=== PATIENT | female | born 1960 | race Caucasian/White ===

== ENCOUNTER 2018-11-05 16:26 | Inpatient (IN) ==
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
[2018-11-05 17:51] LABS: Hematocrit 35.2 % (35.3-44.9); Hemoglobin 11.3 g/dL (11.5-15.4); Mean Corpuscular HGB Conc 32.1 g/dL (31.6-35.5); Mean Corpuscular Hemoglobin 25.5 pg (28.0-33.3); Mean Corpuscular Volume 79.5 fL (83.0-100.0); Nucleated Red Blood Cells 0.1 /100 WBC (0); Red Blood Count 4.43 M/mcL (3.82-4.97)
[2018-11-05 17:58] LABS: INR 1.2
[2018-11-05 18:01] LABS: Activated Partial Thrombo Time 29.5 Seconds (26.0-36.0)
[2018-11-05 18:10] LABS: BUN/Creatinine Ratio 18 (6-26); Blood Urea Nitrogen 12 mg/dL (6-20); Calcium 9.3 mg/dL (8.6-10.3); Carbon Dioxide 28 mEq/L (23-29); Chloride 106 mEq/L (98-107); Glucose 101 mg/dL (70-105); Osmolality,Calculated 294 (280-300); Potassium 3.9 mEq/L (3.5-5.1); Sodium 142 mEq/L (136-145); eGFR For Non-African Americans > 60 (> 60)
[2018-11-05 18:12] LABS: Platelet Count 8 K/mcL (140-400)
[2018-11-05 18:15] LABS: Lymphocytes # 93.3 K/mcL (0.6-4.6); Neutrophils # 1.9 K/mcL (1.6-8.9); Platelet Estimate Marked Decrease (Normal); Reactive Lymphocytes Present (Not Present); Smudge Cells Present (Not Present)
[2018-11-05] MEDS ORDERED: Dexamethasone 4 MG/ML VIAL IVP SCH (18:39)
[2018-11-05] MEDS ORDERED: Dexamethasone 4 MG/ML VIAL IVP ONE (19:30)
[2018-11-05] MEDS ORDERED: Naloxone 0.4 MG/ML INJ IVP PRN (19:52)
[2018-11-05] MEDS ORDERED: 0.9 % Sodium Chloride 250 ML ONE (22:09)
--- NOTE | 2018-11-05 22:57 | Internal Med History&Physical ---
Date of Encounter: 11/05/18 Time of Encounter: 22:46 Internal Medicine - H&P: HPI Chief complaint: Bruising History of present illness: Ms. Jackson is a pleasant 58 year old female with a past medical history of iron deficiency anemia who presented to the ED due to increased bruising. Patient states that she has noticed bruising on various parts of her body over the past 3 days. She initially noticed petechia in her mouth several days ago after eating some chips. She awoke this morning and noticed a bruise on the side of her head adjacent to her right eye, as well as on her left forearm. Today she noticed petechiae involving her stomach and lower extremities. There is also a bruise on her abdomen which she states occurred after her dog jumped on her lap. She reports otherwise feeling her usual self. Denies any fevers, night sweats, fatigue or weight loss. She did state that she took ibuprofen for the past 2 days because of some neck pain as well as upper respiratory tract symptoms. Patient does not smoke or drink alcohol. Her only family history she endorses diabetes and heart disease, hypertension. She reports anemia in the past for which she was taking iron supplements for. His had a hysterectomy in the past. In the ED patient was found to be afebrile, hemodynamically stable. Laboratory workup was notable for a platelet count of 8 and a white blood cell count of 96.[address] Cary with oncology was consult and is okay with admitting the patient here and they will consult and see the patient tomorrow. He did recommend that I give 40 mg IV Decadron to be given daily for 4 days to help with the ITP. He suspects this most likely is CLL with ITP Past Med Surg Social Fam HX - Past Medical History Medical history: migraine, other Additional medical history: Anemia Psychiatric history: no psych history - Past Surgical History Surgical History: hysterectomy, orthopedic, other Additional surgical history: hand - Social History Smoking Status: Never smoker Smokeless Tobacco Status: No Alcohol use: none Drug use: none - Family History Mother Hx Family Endocrine Disorder: Yes (DM) Internal Medicine - H&P: Meds Orphenadrine [Norflex] 100 mg PO BID #10 tablet.er 08/27/18 [Rx] Allergy/AdvReac Type Severity Reaction Status Date / Time azithromycin Allergy Vomiting Verified 11/05/18 16:29 codeine Allergy Rash Verified 11/05/18 16:29 Penicillins [PCN] Allergy Rash Verified 11/05/18 16:29 dicyclomine [From Bentyl] AdvReac Anaphylaxis Verified 11/05/18 16:29 Erythromycin Base AdvReac Nausea Verified 11/05/18 16:29 All Systems PM: A 10-system review of systems was performed and is negative for pertinent findings except as documented above in the HPI. - Constitutional Constitutional: no chills, no fever(s), no night sweats - EENT Eyes: no change in vision, no discharge, no pain, no photophobia Ears: no ear discharge, no ear pain, no tinnitus Nose, mouth and throat: no dysphagia, no nasal discharge, no neck pain, no sore throat - Cardiovascular Cardiovascular ROS IM: no chest pain, no diaphoresis, no dyspnea, no lightheadedness, no palpitations, no syncope - Respiratory Respiratory: no cough, no dyspnea, no wheezing, no excessive phlegm production - Gastrointestinal Gastrointestinal: no abdominal pain, no diarrhea, no hematemesis, no hematochezia, no melena, no nausea, no vomiting - Genitourinary Genitourinary: no change in urinary stream, no dysuria, no flank pain, no hematuria - Musculoskeletal Musculoskeletal ROS IM: no numbness, no tingling - Integumentary Integumentary IM: no rash, no unusual bruising - Neurological Neurological ROS: no confusion, no convulsions, no focal weakness, no numbness, no tingling, no tremor(s) - Hematologic/Lymphatic Hematologic/Lymphatic: no easy bruising - Constitutional Vitals: Temp Pulse Resp BP Pulse Ox 97.8 F 77 16 140/85 96 11/05/18 22:18 11/05/18 22:18 11/05/18 22:18 11/05/18 22:18 11/05/18 22:18 Exam: General: Alert and oriented 3 lying in bed in no acute distress Skin: 2 x 2 centimeter area of ecchymosis adjacent to the right eye. 2 x 2 centimeter bruise on the left lower quadrant of the abdomen. Numerous petechiae seen diffusely across the abdomen. Petechiae seen on the lower extremities bilaterally HEENT:EOM, pupils equal, round and reactive. Right anterior cervical lymphadenopathy noted Cardiovascular:Normal S1 & S2, no rubs, murmurs or gallops. No JVD. Pulse regular. Lungs:Normal breath sounds, no wheezes or crackles. Abdomen:Soft, non-tender, no rigidity. No hepatosplenomegaly noted however patient's body habitus makes it difficult to assess Extremities:No deformity, no axillary lymphadenopathy appreciated; 2 x 2 cm area of ecchymosis on the mid forearm; no edema or tenderness, no joint swelling or clubbing. Neurological:Normal cognition and motor skills. Pulses:Carotid and radial pulses normal +2. Rest of the physical exam is non contributory Internal Med - H&P Results - Labs CBC & Chem 7: 11/06/18 05:06 11/06/18 05:06 Labs: Short CBC 11/05/18 Range/Units 17:41 WBC 96.2 H* (4.3-11.1) K/mcL Hgb 11.3 L (11.5-15.4) g/dL Hct 35.2 L (35.3-44.9) % Plt Count 8 L* (140-400) K/mcL Neutrophils # 1.9 (1.6-8.9) K/mcL BMP 11/05/18 17:41 Sodium 142 Potassium 3.9 Chloride 106 Carbon Dioxide 28 BUN 12 Creatinine 0.66 Glucose 101 Calcium 9.3 - Assessment and plan (1) Lymphocytosis Current Visit: Yes Status: Acute Assessment and plan: Patient found to have a leukocytosis of 96.2 associated with 97% lymphocytes. Only records of a previous CBC was in 02/05/2015 at which time her white blood c ell count was 10.7. Concern for CLL based on discussion with oncology. Patient is otherwise asymptomatic aside from development of ecchymosis over the past 3 days. Questionable cervical lymphadenopathy appreciated. -We will obtain peripheral smear -Oncology to follow in the morning. (2) Thrombocytopenia Current Visit: Yes Status: Acute Assessment and plan: Severe symptomatic thrombocytopenia with a platelet count of 8. Patient has ecchymotic lesions on the forehead, forearms and abdomen as well as petechia involving the oral mucosa, abdomen and lower extremities. This in the setting of a lymphocytic predominant leukocytosis concerning for CLL. After discussion with oncology, concern for ITP. Patient given IV dexamethasone in the ED. We will start patient on 1 unit of platelets. Oncology to follow in the morning. We will monitor for signs of bleeding. (3) Anemia Current Visit: Yes Status: Acute Assessment and plan: Patient has a reported history of iron deficiency anemia in the remote past. Hemoglobin and hematocrit found to be 11.3 and 35.2 respectively. MCV of 79.5. Previously documented hemoglobin of 13.2 in 2015. Patient's thrombocytopenia and evidence of ecchymosis/petechia may be contributing to current levels. Currently asymptomatic. -We will monitor H&H Qualifiers: Anemia type: unspecified type Qualified Code(s): D64.9 - Anemia, unspecified (4) DVT prophylaxis Current Visit: Yes Status: Acute Assessment and plan: Pneumatic compression devices - Time Spent With Patient Total time spent is greater than 50% in coordination of care (as documented) at patient's floor/unit and/or counseling patient:
[2018-11-05] MEDS ORDERED: Acetaminophen 325 MG TABLET PO PRN (23:16)
[2018-11-06] MEDS: 0.9 % Sodium Chloride 1,000 ML IVC SCH ×2 (01:13→14:15)
[2018-11-06 05:40] LABS: Mean Corpuscular HGB Conc 31.6 g/dL (31.6-35.5); Nucleated Red Blood Cells 0.3 /100 WBC (0); Red Cell Distribution Width 16.1 % (11.5-14.5)
[2018-11-06 05:42] LABS: Hematocrit 36.7 % (35.3-44.9); Hemoglobin 11.6 g/dL (11.5-15.4); INR 1.1; Mean Corpuscular Hemoglobin 25.2 pg (28.0-33.3); Mean Corpuscular Volume 79.6 fL (83.0-100.0); Prothrombin Time 12.6 Seconds (9.4-12.1); Red Blood Count 4.61 M/mcL (3.82-4.97)
[2018-11-06 05:45] LABS: Activated Partial Thrombo Time 28.2 Seconds (26.0-36.0)
[2018-11-06 05:56] LABS: Platelet Count 5 K/mcL (140-400)
[2018-11-06 06:02] LABS: % Iron Saturation 52 % (15-50); Alanine Aminotransferase 28 Units/L (7-52); Albumin/Globulin Ratio 1.6 (1.1-2.2); Alkaline Phosphatase 83 Units/L (34-104); Aspartate Amino Transferase 25 Units/L (13-39); BUN/Creatinine Ratio 21 (6-26); Bilirubin,Total 0.6 mg/dL (0.3-1.0); Blood Urea Nitrogen 13 mg/dL (6-20); Calcium 9.1 mg/dL (8.6-10.3); Carbon Dioxide 24 mEq/L (23-29); Chloride 105 mEq/L (98-107); Globulin 2.5 g/dL (2.4-3.5); Glucose 157 mg/dL (70-105); Iron 181 mcg/dL (50-170); Lactate Dehydrogenase 430 Units/L (140-271); Magnesium 2.2 mg/dL (1.6-2.6); Osmolality,Calculated 293 (280-300); Phosphorous 2.7 mg/dL (2.7-4.5); Sodium 140 mEq/L (136-145); Total Protein 6.5 g/dL (6.4-8.9); Transferrin 250 mg/dL (203-362); eGFR For Non-African Americans > 60 (> 60)
[2018-11-06 06:25] LABS: Lymphocytes # 28.4 K/mcL (0.6-4.6); Monocytes # 1.3 K/mcL (0.0-1.3); Neutrophils # 1.9 K/mcL (1.6-8.9)
[2018-11-06 06:26] LABS: Platelet Estimate Marked Decrease (Normal); Reactive Lymphocytes Present (Not Present); Smudge Cells Present (Not Present)
[2018-11-06] MEDS ORDERED: 0.9 % Sodium Chloride 250 ML ONE (10:11)
--- NOTE | 2018-11-06 13:27 | Oncology Inp Consult Note ---
<Marii Vargas L - Last Filed: 11/07/18 09:25> Date of Encounter: 11/06/18 Time of Encounter: 11:15 Assessment and Plan (1) Thrombocytopenia Status: Acute Assessment and plan: Acute thrombocytopenia with platelet count of 8k on admission Scattered bruising and petechiae, no s/s active bleeding Only labs to compare back to are from January 2015, at that time CBC was unremarkable Concerning for ITP given potential lymphoproliferative disorder with lymphocytosis Plan: Start decadron 40 mg IVP daily for minimum of 4 days May consider IVIG if platelets are refractory to steroids- 1gram/kg daily x2 doses (2) Lymphocytosis Status: Acute Assessment and plan: Initially concerning for CLL/SLL on presentation Interestingly, she presented with WBC count of 96 and lymphocyte count of 93 yesterday Today, counts have markedly decreased to WBC 31 and lymphocyte 28 Etiology of improvement unclear, secondary to steroids? or lymphocytosis secondary to other process? Hgb 11.3 on admission, 11.6 today Microcytosis and nucleated RBC's noted Blood smear reveals absolute lymphocytosis. Microcytes, ovalocytes, schistocytes seen. The smear shows atypical lymphocytes. Features are suggestive of lymphoproliferative disorder. Smudge cells noted on CBC No blasts noted LDH is elevated at 430 as well as uric acid elevated at 9.8, this may be concerning for underlying lymphoma Plan: CT chest/abdomen/pelvis with IV contrast to assess spleen and for potential lymphadenopathy Plan for BMB tomorrow Peripheral blood flow ordered - Data of Consult Patient: new to practice Consult date: 11/06/18 Requesting Physician: Gee Ramey Primary Care Provider: Won Melchor MD - Consult Narrative Reason for consult: Thrombocytopenia, Leukocytosis History of present illness: Mrs. Jackson is a 58 year old female with past medical history significant for CYNTHIA, OA right knee and HTN, presented to [facility] on 11/05/2018 who presented to [facility] on 11/05/2018 with chief complaint of bruising. Since Tuesday, patient has noticed scattered bruising and petechaial rash to oral mucosa as well as chest, neck and lower extremities. She otherwise feels well and has no physical complaints. Denies any s/s bleeding such as hematochezia, hematuria, melena, epistaxis or gingivial bleeding. She states she did notice some very mild bleeding with brushing her teeth this morning but this was a very small amount. She denies fatigue, night sweats, fevers, chills, nausea, vomiting, bowel changes, appetite changes or unintentional weight loss, urinary complaint, chest pain, SOB, calf pain or erythema, headache, dizziness visual changes or focal weakness. NO recent infections. Patient states that she has carbohydrate intolerance (asked her if she has been diagnosed with celiac disease but states never tested) and on Tuesday/Tuesday she ate an unusual amount of bread/carbohydrates so she noticed a headache and diarrhea this day which were typical for her following eating these foods. No new medication changes. She has been taking ibuprofen G2tdcib for almost 2 months following a muscular neck strain which occurred following a visit to the chiropractor. No alcohol or tobacco abuse. She has a history of early stage cervical cancer s/p total hysterectomy. No other family history of cancer. Past Med Surg Social Fam HX - Past Medical History Medical history: migraine, other Additional medical history: Anemia Psychiatric history: no psych history - Past Surgical History Surgical History: hysterectomy, orthopedic, other Additional surgical history: hand - Social History Smoking Status: Never smoker Smokeless Tobacco Status: No Alcohol use: none Drug use: none - Family History Mother Hx Family Endocrine Disorder: Yes (DM) Medications and Allergies Ibuprofen [Ibu-200] 600 mg PO BID PRN 11/06/18 [History] Allergy/AdvReac Type Severity Reaction Status Date / Time azithromycin Allergy Vomiting Verified 11/05/18 16:29 codeine Allergy Rash Verified 11/05/18 16:29 Penicillins [PCN] Allergy Rash Verified 11/05/18 16:29 dicyclomine [From Bentyl] AdvReac Anaphylaxis Verified 11/05/18 16:29 Erythromycin Base AdvReac Nausea Verified 11/05/18 16:29 Constitutional: Absent: anorexia, chills, fatigue, fever(s), night sweats, weakness, weight loss Eyes: Absent: blurry vision, change in vision Nose, mouth and throat: Absent: bleeding gums, dysphagia, headache(s), odynophagia Cardiovascular: Absent: chest pain, irregular heart rhythm, palpitations Respiratory: Absent: cough, dyspnea, hemoptysis Gastrointestinal: Present: as per HPI, other. Absent: abdominal pain, change in bowel habits, hematemesis, hematochezia, melena, nausea, vomiting Genitourinary: Absent: dysuria, hematuria Musculoskeletal: Present: arthralgias Integumentary: Present: rash Neurological: Absent: dizziness, focal weakness, headache(s) Endocrine: Absent: fatigue Hematologic/Lymphatic: Present: as per HPI Oncology - Exam - Constitutional General appearance: cooperative, no acute distress, no febrile - Eye Eye exam: Present: PERRL - ENT Additional comments: palatal petechiae - Neck Neck exam: Absent: lymphadenopathy, tenderness - Respiratory Respiratory exam: Present: CTAB. Absent: respiratory distress - Cardiovascular Cardiovascular exam: Present: RRR, +S1, +S2 - GI/Abdominal GI/Abdominal exam: Present: normal bowel sounds, soft. Absent: guarding, rebound, tenderness - Extremities Exam Extremities exam: Present: normal inspection. Absent: calf tenderness - Neurological Exam Neurological exam: Present: alert, CN II-XII intact, oriented X3, no focal deficits, strengths equal and symetr throughout - Skin Skin exam: Present: dry, intact, petechiae, warm Additional comments: multiple scattered bruises Consult Discharge Plan - Plan Referrals: Won Melchor MD [Primary Care Provider] - Inpatient Charges Provider: Dr. Jackson Cary <Az Cary S - Last Filed: 11/07/18 18:34> Date of Encounter: 11/06/18 - Data of Consult Requesting Physician: Gee Ramey Primary Care Provider: Won Melchor MD Inpatient Charges Provider: Dr. Jackson Cary Consult - Inpatient: [id number] - Attending Attestation I examined this patient and my medical decision-making was reviewed with the Advanced Practice Nurse. I agree with the documented findings, disposition and treatment plan as described except to the extent set forth below. Evaluated in emergency room for bruising including some facial bruising and in the hands. Otherwise no evidence of sepsis or infection On admission platelet counts were reduced at 8000. Lymphocyte count elevated at 93,000. Hemoglobin around 11. Her platelets are normal at 169 on 02/05/2015 and lymphocytes also normal at 1900. 11/06/2018 her lymphocyte count had dropped to 28,000. Platelet count remains low at 5000. CT chest without contrast 11/06/2018 negative Assessment 1. Significant thrombocytopenia. Could be ITP given underlying lymphoproliferative disorder. She was started on Decadron 40 mg daily on 11/05/2018 and plan is to continue for minimum of 4 days If her platelets do not improve would consider IVIG 1 g per KG daily 2 doses She already received platelet transfusion yesterday and also today. 2. Underlying lymphoproliferative disorder. Her lymphocytes counts were normal January 2015 and significantly elevated now. Denied day day came down to 28,000. No abnormal white cells other than some smudge cells. No blasts. Peripheral review by pathologist noted some schistocytes. LDH is elevated on 430 and uric acid elevated at 9.8. We will proceed with CT chest abdomen and pelvis with and without contrast. Shortly after that proceed with bone marrow biopsy. Her lymphoproliferative disorder may be secondary to aggressive lymphoma as well With CLL/SLL usually LDH and uric acid are not much elevated
[2018-11-06] MEDS ORDERED: Isovue-370 500 ML INFUS..BTL IV ONE (17:24)
[2018-11-06 19:07] LABS: Nucleated Red Blood Cells 0.2 /100 WBC (0)
[2018-11-06 19:08] LABS: Hematocrit 33.4 % (35.3-44.9); Hemoglobin 10.7 g/dL (11.5-15.4); Mean Corpuscular Hemoglobin 25.4 pg (28.0-33.3); Mean Corpuscular Volume 79.3 fL (83.0-100.0); Red Blood Count 4.21 M/mcL (3.82-4.97); Red Cell Distribution Width 16.3 % (11.5-14.5)
[2018-11-06 19:29] LABS: Platelet Count 18 K/mcL (140-400)
[2018-11-06 19:55] LABS: Eosinophils # 0.6 K/mcL (0.0-0.6); Lymphocytes # 24.6 K/mcL (0.6-4.6); Monocytes # 1.7 K/mcL (0.0-1.3); Neutrophils # 1.1 K/mcL (1.6-8.9); Platelet Estimate Marked Decrease (Normal)
[2018-11-06 19:56] LABS: Macrocytosis Present (Not Present); Reactive Lymphocytes Present (Not Present); Smudge Cells Present (Not Present)
[2018-11-07] MEDS: 0.9 % Sodium Chloride 1,000 ML IVC SCH ×2 (00:01→09:38)
[2018-11-07 04:25] LABS: Basophils % 0.3 %; Hematocrit 31.4 % (35.3-44.9); Mean Corpuscular Volume 78.7 fL (83.0-100.0); Red Blood Count 3.99 M/mcL (3.82-4.97)
[2018-11-07 04:27] LABS: Eosinophils % 0.4 %; Immature Granulocytes % 0.9 % (0-4); Immature Platelets 2.1 % (1.1-6.1); Lymphocytes # 6.3 K/mcL (0.6-4.6); Lymphocytes % 81.6 %; Mean Corpuscular HGB Conc 31.8 g/dL (31.6-35.5); Mean Corpuscular Hemoglobin 25.1 pg (28.0-33.3); Monocytes # 0.4 K/mcL (0.0-1.3); Monocytes % 5.3 %; Neutrophils # 0.9 K/mcL (1.6-8.9); Nucleated Red Blood Cells 0.6 /100 WBC (0); Red Cell Distribution Width 15.9 % (11.5-14.5); Segmented Neutrophils % 11.5 %
[2018-11-07 04:39] LABS: Platelet Count 7 K/mcL (140-400)
[2018-11-07 04:43] LABS: Alanine Aminotransferase 24 Units/L (7-52); Albumin 3.7 g/dL (3.5-5.7); Albumin/Globulin Ratio 1.6 (1.1-2.2); Alkaline Phosphatase 69 Units/L (34-104); Aspartate Amino Transferase 19 Units/L (13-39); BUN/Creatinine Ratio 35 (6-26); Bilirubin,Total 0.4 mg/dL (0.3-1.0); Blood Urea Nitrogen 17 mg/dL (6-20); Calcium 8.2 mg/dL (8.6-10.3); Carbon Dioxide 24 mEq/L (23-29); Chloride 109 mEq/L (98-107); Globulin 2.3 g/dL (2.4-3.5); Glucose 156 mg/dL (70-105); Osmolality,Calculated 297 (280-300); Potassium 4.6 mEq/L (3.5-5.1); Sodium 141 mEq/L (136-145); eGFR For Non-African Americans > 60 (> 60)
[2018-11-07 05:19] LABS: Platelet Estimate Decreased (Normal); Reactive Lymphocytes Present (Not Present)
--- NOTE | 2018-11-07 07:02 | Internal Med Progress Note ---
Hospitalist Progress Note - Encounter Date of Encounter: 11/06/18 Time of Encounter: 19:00 - Subjective Interval History: SUBJECTIVE: The patient was admitted with generalized purpuric rash associated with low platelet count. Otherwise says she feels good. There is a recent history of taking high-dose ibuprofenwas taking 800 mg 3 times a day for about 2 months; taking it only occasionally in the last few weeks. Denies chest pain. Denies difficulty breathing. Denies abdominal pain, nausea and vomiting. OBJECTIVE: Skin: There is generalized purpuric rash. ENMT: Oral/pharyngeal mucosa is normal in appearance. Eyes: Sclera is white. There is no discharge from eyes. Respiratory: Normal breath sounds; no crackles or wheezes. CV: Heart is regular; no gallop or murmur. GI: Abdomen is soft and not tender. There is no palpable mass or visceromegaly. Neuro: There is no focal deficits. ADDITIONAL DATA: She has platelet count of 8000 at admission currently is about 5000. Her WBC was initially 96.2 thousand; currently 31.6 thousand. 90% is lymphocytes. 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 Hematology has been consulted. They started her on Decadron at 40 mg IV daily. The patient is no evidence for active bleeding at this time. She had a transfusion reaction to the first bag of platelets. We will give her the second oneshould be better after giving her IV Decadron. - Exam Vitals: Temp Pulse Resp BP Pulse Ox 98.4 F 69 14 148/76 96 11/07/18 06:38 11/07/18 06:38 11/07/18 06:38 11/07/18 06:38 11/07/18 06:38 Exam: xx - Assessment and Plan (1) Lymphocytosis Current Visit: Yes Status: Acute (2) Thrombocytopenia Current Visit: Yes Status: Acute - Time Spent with Patient Total time spent is greater than 50% in coordination of care (as documented) at patient's floor/unit and/or counseling patient: 25 - 35 minutes Plan of Care Discussed with: patient Internal Medicine: Result - Labs CBC & Chem 7: 11/07/18 03:51 11/07/18 03:51 Labs: Short CBC 11/06/18 11/07/18 Range/Units 18:32 03:51 WBC 27.9 H 7.7 D (4.3-11.1) K/mcL Hgb 10.7 L 10.0 L (11.5-15.4) g/dL Hct 33.4 L 31.4 L (35.3-44.9) % Plt Count 18 L* D 7 L* D (140-400) K/mcL Neutrophils # 1.1 L 0.9 L (1.6-8.9) K/mcL BMP 11/07/18 03:51 Sodium 141 Potassium 4.6 Chloride 109 H Carbon Dioxide 24 BUN 17 Creatinine 0.49 L Glucose 156 H Calcium 8.2 L Liver Function 11/07/18 Range/Units 03:51 Total Bilirubin 0.4 (0.3-1.0) mg/dL AST 19 (13-39) Units/L ALT 24 (7-52) Units/L Alkaline Phosphatase 69 (34-104) Units/L Albumin 3.7 (3.5-5.7) g/dL - ABG Interpretation ABG results: PT/INR, D-dimer PT 12.6 Seconds (9.4-12.1) H 11/06/18 05:06 - Impressions Impressions Head CT 11/06/18 13:03 IMPRESSION: No acute intracranial abnormality. D/ / Theodore Sahu MD / Theodore Sahu MD Interpreting Provider: Theodore Sahu MD Abdomen/Pelvis CT 11/06/18 17:24 IMPRESSION: 1. No acute intrathoracic or intra-abdominal process identified. 2. No evidence for lymphadenopathy. 3. Hyperattenuation of the gallbladder wall which appears slightly thickened. Findings overall appear grossly stable compared with prior exam dated February 03, 2012. 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 Recommend nonemergent evaluation with right upper quadrant ultrasound for confirmation. D/ / Wale Tucker MD / Wale Tucker MD Interpreting Provider: Wale Tucker MD Chest CT 11/06/18 17:24 IMPRESSION: 1. No acute intrathoracic or intra-abdominal process identified. 2. No evidence for lymphadenopathy. 3. Hyperattenuation of the gallbladder wall which appears slightly thickened. Findings overall appear grossly stable compared with prior exam dated February 03, 2012. 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 Recommend nonemergent evaluation with right upper quadrant ultrasound for confirmation. D/ / Wale Tucker MD / Wale Tucker MD Interpreting Provider: Wale Tucker MD Consult Discharge Plan - Plan Referrals: Won Melchor MD [Primary Care Provider] -
[2018-11-07] MEDS ORDERED: Immune Globulin, Gamma (IGG) 20 GM/200 ML INFUS..BTL IVC ONE ×6 (11:15)
--- NOTE | 2018-11-07 14:07 | Oncology Inp Progress Note ---
<Marii Vargas L - Last Filed: 11/07/18 22:41> Date of Encounter: 11/07/18 Time of Encounter: 14:45 (1) Thrombocytopenia Status: Acute Assessment and plan: Acute thrombocytopenia with platelet count of 8k on admission Scattered bruising and petechiae, no s/s active bleeding Only labs to compare back to from January 2015, at that time CBC was unremarkable Concerning for ITP given potential lymphoproliferative disorder with lymphocytosis Plan: Platelet count continues to decline despite 2 doses of high dose steroids (Dex 40 mg IVP x2) Appears to be steroid refractory, therefore, will start IVIG 1000 mg/kg/day x 2 doses Continue dexamethasone (2) Lymphocytosis Status: Acute Assessment and plan: Initially concerning for CLL/SLL on presentation Interestingly, she presented 11/05 with WBC count of 96k and lymphocyte count of 93k yesterday 11/06-counts have markedly decreased to WBC 31k and lymphocyte 28k Today, WBC count has normalized as of of 0400 this morning and are now decre ased, with ANC 400 on repeat afternoon labs with new leukopenia Hgb is now down trending Microcytosis and nucleated RBC's noted Blood smear reveals absolute lymphocytosis. Microcytes, ovalocytes, schistocytes seen. The smear shows atypical lymphocytes. Features are suggestive of lymphoproliferative disorder. Smudge cells noted on CBC No blasts noted LDH is elevated at 430 as well as uric acid elevated at 9.8, this may be concerning for underlying lymphoma Peripheral blood flow-pending CT chest/abdomen/pelvis without acute findings or lymphadenopathy Plan: Bone marrow biopsy initially put on hold secondary to normalization of counts, however, with new leukopenia and neutropenia, recommend transfer to [facility] for bone marrow yusra. She would be best served at a tertiary care center where BMB results and treatment may be expedited Oncology: Subj Interval history: Patient is resting in bed. NO acute events overnight. ROS continues to be negative other than noted scattered bruising and petechiae. She continues to deny and s/s bleeding. Overall, patient states she is feeling quite well.Denies fevers, chills, night sweats, pain. Appetite stable. Ambulating in room without difficulty. - Constitutional General appearance: cooperative, no acute distress, no febrile - Head Head exam: Present: atraumatic - ENT ENT exam: Present: mucous membranes moist Additional comments: palatal petechiae - Respiratory Respiratory exam: Present: CTAB. Absent: respiratory distress - Cardiovascular Cardiovascular exam: Present: RRR, +S1, +S2 - GI/Abdominal GI/Abdominal exam: Present: normal bowel sounds, soft. Absent: guarding, tenderness - Extremities Exam Extremities exam: Absent: calf tenderness Additional comments: scattered bruising and petechiae noted - Neurological Exam Neurological exam: Present: alert, oriented X3, no focal deficits, strengths equal and symetr throughout - Psychiatric Psychiatric exam: Present: normal affect, normal mood - Skin Skin exam: Present: dry, intact, normal color, warm Additional comments: findings as above Oncology: Obj Data - Labs CBC & Chem 7: 11/07/18 15:52 11/07/18 03:51 Consult Discharge Plan - Plan Referrals: Won Melchor MD [Primary Care Provider] - Inpatient Charges Provider: Dr. Jackson Cary <Luis DanielAz S - Last Filed: 11/08/18 16:17> Date of Encounter: 11/07/18 Oncology: Obj Data - Labs CBC & Chem 7: 11/07/18 15:52 11/07/18 03:51 Inpatient Charges Provider: Dr. Jackson Cary Follow up - Inpatient: [id number] - Attending Attestation I examined this patient and my medical decision-making was reviewed with the Advanced Practice Nurse. I agree with the documented findings, disposition and treatment plan as described except to the extent set forth below. 1. Presented with lymphocytosis smudge cells elevated lymphocyte count of 98,000. Clinical presentation was like CLL. Hemoglobin normal. Also thrombocytopenia on presentation platelet count around 9000. With Decadron 40 mg daily her lymphocyte count dropped to 2600 today She also had progressive neutropenia neutrophil count went from 8000 on admission to 400 now. Her thrombocytopenia did not respond well to steroids. She had 1 dose of IVIG today. Still platelets are low around 6000. Today she is also anemic with hemoglobin 9.4. MCV [address] chest abdomen and pelvis with contrast on the 11/07/2018 negative and no lymphadenopathy This is suspicious for more aggressive process involving bone marrow She will be best served at [facility]. She is going in need bone marrow biopsy and further treatment recommendations after that.
--- NOTE | 2018-11-07 15:26 | Internal Med Progress Note ---
Hospitalist Progress Note - Encounter Date of Encounter: 11/07/18 Time of Encounter: 15:23 - Subjective Interval History: Ms. Jackson is a pleasant 58 year old female with a past medical history of iron deficiency anemia who presented to the ED due to increased bruising. In the ED patient was found to be afebrile, hemodynamically stable. Laboratory workup was notable for a platelet count of 8 and a white blood cell count of 96.[address] Cary with oncology was consult and is okay with admitting the patient here and they will consult and see the patient tomorrow. He did recommend that I give 40 mg IV Decadron to be given daily for 4 days to help with the ITP. 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 Platelets dropped to 7000 today, subway operator started her on IV IgG today, she has been tolerating since it is started. - Exam Vitals: Temp Pulse Resp BP Pulse Ox 98.3 F 69 16 143/88 98 11/07/18 14:45 11/07/18 14:45 11/07/18 14:45 11/07/18 14:45 11/07/18 14:45 Exam: CONSTITUTIONAL: patient appears as an age appropriate female in no acute distress. EYES Clear sclerae, bilateral pupils are equal, reactive to light. EMOI. RESPIRATORY: No accessory muscle use, bilateral clear to auscultation, no wheezing, no crackles/rales. CARDIOVASCULAR: Regular heart rate, normal S1 and S2, no murmurs GASTROINTESTINAL: bowel sounds present, soft, no tenderness. MUSCULOSKELETAL: Joints in normal range of motion, no clubbing, no edema, no cyanosis. Bilateral peripheral pulses 2+. NEUROLOGIC: CN II to XII are grossly intact, no focal neurological deficit. Skin, bilateral lower extremity, Petichiae and brusing DVT Prophylaxis: SCDs - Summary of Assessment and Plan Summary of Assessment and Plan: Manuel Luong is a pleasant 58 year old female with a past medical history of iron deficiency anemia who presented to the ED due to increased bruising. In the ED patient was found to be afebrile, hemodynamically stable. Laboratory workup was notable for a platelet count of 8 and a white blood cell count of 96.[address] Cary with oncology was consult and is okay with admitting the patient here and they will consult and see the patient tomorrow. He did recommend that I give 40 mg IV Decadron to be given daily for 4 days to help with the ITP. 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 Platelets dropped to 7000 today, subway operator started her on IV IgG today, she has been tolerating since it is started (1) Lymphocytosis, concerning for CLL, received IV steroids, improved Current Visit: Yes Status: Acute IMPRESSION: CT abdomen and chest 1. No acute intrathoracic or intra-abdominal process identified. 2. No evidence for lymphadenopathy. 3. Hyperattenuation of the gallbladder wall which appears slightly thickened. Findings overall appear grossly stable compared with prior exam dated February 03, 2012. 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 Recommend nonemergent evaluation with right upper quadrant ultrasound for confirmation. oncology is following elevated LDH and urate (2) Thrombocytopenia, PLT dropped to 7K with IV steroids Current Visit: Yes Status: Acute Assessment and plan: Severe symptomatic thrombocytopenia with a platelet count of 8. Scattered bruising and petechiae, no s/s active bleeding Concerning for ITP on decadron 40 mg IVP daily for minimum of 4 days started IVIG - 1gram/kg daily x2 doses (3) Anemia from possible lymphoproliferative disorder, Current Visit: Yes Status: Acute (4) Morbid obesity with BMI 44 5. DVT prophylasix Current Visit: Yes Status: Acute Assessment and plan: Pneumatic compression devices - Time Spent with Patient Total time spent is greater than 50% in coordination of care (as documented) at patient's floor/unit and/or counseling patient: 25 - 35 minutes Plan of Care Discussed with: patient Internal Medicine: Result - Labs CBC & Chem 7: 11/07/18 03:51 11/07/18 03:51 Labs: Short CBC 11/06/18 11/07/18 Range/Units 18:32 03:51 WBC 27.9 H 7.7 D (4.3-11.1) K/mcL Hgb 10.7 L 10.0 L (11.5-15.4) g/dL Hct 33.4 L 31.4 L (35.3-44.9) % Plt Count 18 L* D 7 L* D (140-400) K/mcL Neutrophils # 1.1 L 0.9 L (1.6-8.9) K/mcL BMP 11/07/18 03:51 Sodium 141 Potassium 4.6 Chloride 109 H Carbon Dioxide 24 BUN 17 Creatinine 0.49 L Glucose 156 H Calcium 8.2 L Liver Function 11/07/18 Range/Units 03:51 Total Bilirubin 0.4 (0.3-1.0) mg/dL AST 19 (13-39) Units/L ALT 24 (7-52) Units/L Alkaline Phosphatase 69 (34-104) Units/L Albumin 3.7 (3.5-5.7) g/dL - ABG Interpretation ABG results: PT/INR, D-dimer PT 12.6 Seconds (9.4-12.1) H 11/06/18 05:06 - Impressions Impressions Head CT 11/06/18 13:03 IMPRESSION: No acute intracranial abnormality. D/ / Theodore Sahu MD / Theodore Sahu MD Interpreting Provider: Theodore Sahu MD Abdomen/Pelvis CT 11/06/18 17:24 IMPRESSION: 1. No acute intrathoracic or intra-abdominal process identified. 2. No evidence for lymphadenopathy. 3. Hyperattenuation of the gallbladder wall which appears slightly thickened. Findings overall appear grossly stable compared with prior exam dated February 03, 2012. 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 Recommend nonemergent evaluation with right upper quadrant ultrasound for confirmation. D/ / Wale Tucker MD / Wale Tucker MD Interpreting Provider: Wale Tucker MD Chest CT 11/06/18 17:24 IMPRESSION: 1. No acute intrathoracic or intra-abdominal process identified. 2. No evidence for lymphadenopathy. 3. Hyperattenuation of the gallbladder wall which appears slightly thickened. Findings overall appear grossly stable compared with prior exam dated February 03, 2012. 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 Recommend nonemergent evaluation with right upper quadrant ultrasound for confirmation. D/ / Wale Tucker MD / Wale Tucker MD Interpreting Provider: Wale Tucker MD Consult Discharge Plan - Plan Referrals: Won Melchor MD [Primary Care Provider] -
[2018-11-07 16:14] LABS: Hematocrit 29.3 % (35.3-44.9); Hemoglobin 9.4 g/dL (11.5-15.4); Immature Granulocytes % 1.1 % (0-4); Lymphocytes # 2.9 K/mcL (0.6-4.6); Lymphocytes % 83.5 %; Mean Corpuscular HGB Conc 32.1 g/dL (31.6-35.5); Mean Corpuscular Hemoglobin 25.5 pg (28.0-33.3); Mean Corpuscular Volume 79.6 fL (83.0-100.0); Monocytes # 0.1 K/mcL (0.0-1.3); Neutrophils # 0.4 K/mcL (1.6-8.9); Nucleated Red Blood Cells 0.6 /100 WBC (0); Red Blood Count 3.68 M/mcL (3.82-4.97); Segmented Neutrophils % 11.4 %
[2018-11-07 16:20] LABS: Platelet Count 6 K/mcL (140-400)
[2018-11-07 16:29] LABS: Uric Acid 9.6 mg/dL (2.3-7.6)
[2018-11-07 16:46] LABS: Platelet Estimate Marked Decrease (Normal); Reactive Lymphocytes Present (Not Present)
[2018-11-07 23:40] VITALS: BP 175/100
[2018-11-08] MEDS: 0.9 % Sodium Chloride 1,000 ML IVC SCH (00:01)
--- NOTE | 2018-11-08 07:43 | Event Note ---
Date of Encounter: 11/08/18 Time of Encounter: 23:30 Patient seen by oncology, and decision to transfer to [facility] was made. Patient had arrangements for transfer placed, and was ready to go. I received a page from the nurse requesting a transfer order. This was placed, and patient left the hospital, and I was unable to see the patient prior to her departure.
[2018-11-08] MEDS ORDERED: Immune Globulin, Gamma (IGG) 20 GM/200 ML INFUS..BTL IVC ONE ×6 (12:00)
--- NOTE | 2018-11-23 16:56 | Discharge Summary ---
Date of Encounter: 11/07/18 Time of Encounter: 21:00 Hospital course: Manuel Luong is a pleasant 58 year old female with a past medical history of iron deficiency anemia who presented to the ED due to increased bruising. In the ED patient was found to be afebrile, hemodynamically stable. Laboratory workup was notable for a platelet count of 8 and a white blood cell count of 96.[address] Cary with oncology was consult and is okay with admitting the patient here and they will consult and see the patient tomorrow. He did recommend that I give 40 mg IV Decadron to be given daily for 4 days to help with the ITP. 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 Platelets dropped to 7000 today, hazardous materials waste technician started her on IV IgG today, she has been tolerating since it is started (1) Lymphocytosis, concerning for CLL, received IV steroids, improved Current Visit: Yes Status: Acute IMPRESSION: CT abdomen and chest 1. No acute intrathoracic or intra-abdominal process identified. 2. No evidence for lymphadenopathy. 3. Hyperattenuation of the gallbladder wall which appears slightly thickened. Findings overall appear grossly stable compared with prior exam dated February 03, 2012. 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 Recommend nonemergent evaluation with right upper quadrant ultrasound for confirmation. oncology is following elevated LDH and urate I got call from isabel Colvin o transfer the patient to [facility]. I called [facility], and Spoke to Dr Garza. She will talk to Marii to make decision if they accept the patient. If they accept the patient then they will call the floor for transfer. patient is accepted by [facility], awaiting for transfer, I signed out to the automobile glass technician VALIDATION ARCHITECT. (2) Thrombocytopenia, PLT dropped to 7K with IV steroids Current Visit: Yes Status: Acute Assessment and plan: Severe symptomatic thrombocytopenia with a platelet count of 8. Scattered bruising and petechiae, no s/s active bleeding Concerning for ITP on decadron 40 mg IVP daily for minimum of 4 days started IVIG - 1gram/kg daily x2 doses (3) Anemia from possible lymphoproliferative disorder, Current Visit: Yes Status: Acute (4) Morbid obesity with BMI 44 5. DVT prophylasix Discharge discussed with: patient Time spent discussing smoking cessation with patient: more than 10 minutes - Time Spent with Patient Total time spent providing and/or coordinating discharge services: Greater than 30 minutes - Discharge Medications Home Medications: Ibuprofen [Ibu-200] 600 mg PO BID PRN 11/06/18 [History] Allergies/Adverse Reactions: Allergy/AdvReac Type Severity Reaction Status Date / Time azithromycin Allergy Vomiting Verified 11/05/18 16:29 codeine Allergy Rash Verified 11/05/18 16:29 Penicillins [PCN] Allergy Rash Verified 11/05/18 16:29 dicyclomine [From Bentyl] AdvReac Anaphylaxis Verified 11/05/18 16:29 Erythromycin Base AdvReac Nausea Verified 11/05/18 16:29 Date of admission: 11/05/18 20:07 Primary care physician: Won Melchor MD Consults: 11/05/18 18:38 Consult to Oncology [CONS] Stat Consulting Provider: [facility] Reason for Consult: CLL and ITP New diagnosis Time Notified: 18:39 Call Completed: Yes Anticipated date of discharge: 11/07/18 - Constitutional Vitals: Temp Pulse Resp BP Pulse Ox 98.2 F 72 15 175/100 96 11/07/18 23:39 11/07/18 23:39 11/07/18 23:39 11/07/18 23:39 11/07/18 23:39 Exam: CONSTITUTIONAL: patient appears as an age appropriate female in no acute distress. EYES Clear sclerae, bilateral pupils are equal, reactive to light. EMOI. RESPIRATORY: No accessory muscle use, bilateral clear to auscultation, no wheezing, no crackles/rales. CARDIOVASCULAR: Regular heart rate, normal S1 and S2, no murmurs GASTROINTESTINAL: bowel sounds present, soft, no tenderness. MUSCULOSKELETAL: Joints in normal range of motion, no clubbing, no edema, no cyanosis. Bilateral peripheral pulses 2+. NEUROLOGIC: CN II to XII are grossly intact, no focal neurological deficit. Skin, bilateral lower extremity, Petichiae and brusing - Patient Status Disposition: [facility] Condition: Fair - Discharge Instructions Follow Up With: Won Melchor MD [Primary Care Provider] -
== END 2018-11-08 00:16 | disposition other institution (70) | DRG 841 ==
LOC: 3ANU 16:26 → EMEROOARM 16:26 → SUATTDRO 20:07 → 3ANU 21:15
PROVIDERS: ADMIT Pediatrics; ATTEND Hospitalist